=== PATIENT | female | born 1980 | race African-American/Black ===

== ENCOUNTER 2016-11-01 09:45 | Emergency (ER) | payer BC ==
[~2016-11-01] VITALS: Ht 175.3 cm; Wt 68.0 kg
[2016-11-01 10:06] VITALS: BP 114/74
[2016-11-01] MEDS ORDERED: SYNTHROID75 MCG ORAL (10:11)
[2016-11-01] MEDS ORDERED: OFLOXACIN10 ML OP (10:52)
--- NOTE | 2016-11-01 10:52 | Emergency Room Report ---
History of Present Illness General Chief Complaint: Eye Problems Source: Patient Present Illness HPI This patient states that she has a toddler that had pinkeye in addition to her who had pinkeye were treated. Patient states she has had congestion, cough and postnasal drip for the past week. She states that she noticed her eyes became red and irritated. She denies blurry vision or double vision. She states that she woke up this morning with some discharge caked on to her eyelids. She denies fever or chills. She denies headache or neck pain. She has a mild sore throat. She has no other complaints. Allergies: Uncoded Allergies: SHELLFISH (Allergy, Unknown, 11/01/16) Patient History Past Medical History: see triage record, other - Hypothyroid Social History: Denies: alcohol use, drug use, smoking Last Menstrual Period: 11/2015 Now: No Reviewed Nursing Documentation: PMH: Agreed, PSxH: Agreed Nursing Documentation-PMH Past Medical History: No History, Except For Review of Systems All Other Systems: negative except mentioned in HPI Physical Exam Vital Signs Date Time Temp Pulse Resp B/P Pulse Ox O2 Delivery O2 Flow Rate FiO2 11/01/16 10:06 97.9 79 16 114/74 99 Room Air Sp02 EP Interpretation: reviewed, normal General Appearance: no apparent distress, alert, GCS 15, non-toxic Head: normocephalic, atraumatic Eyes: bilateral eye PERRL, bilateral eye other - Mild conjunctival erythema R>L ENT: hearing grossly normal, normal pharynx, no angioedema, normal voice Neck: full range of motion, supple/symm/no masses Respiratory: chest non-tender, lungs clear, normal breath sounds, speaking full sentences Cardiovascular #1: regular rate, rhythm, no edema Gastrointestinal: normal bowel sounds, non tender, soft, non-distended, no guarding, no rebound Rectal: deferred Musculoskeletal: back normal, gait/station normal, normal range of motion, non- tender Neurologic: alert, oriented x3, responsive, motor strength/tone normal, sensory intact, speech normal Psychiatric: judgement/insight normal, memory normal, mood/affect normal, no suicidal/homicidal ideation Skin: normal color, no rash, warm/dry, well hydrated Lymphatic: no adenopathy Medical Decision Making Diagnostic Impression: Primary Impression: Conjunctivitis of both eyes Additional Impression: URI (upper respiratory infection) ER Course This patient has a clinical presentation with upper respiratory tract infection. The evaluation was very reassuring with a normal lung exam, no respiratory distress, normal pulse oximetry. I am not concerned for pneumonia in this patient. This is most likely viral and will not need antibiotic therapy. The patient also has a mild conjunctivitis. Likely this is viral. However, the patient is very concerned because both her children were treated with antibiotics so will give the patient Ilotycin. The patient was educated that she should attempt to not use it and only started if her symptoms persist or worsen. No emergency medical condition was identified. The patient is given return precautions and followup instructions. Last Vital Signs Date Time Temp Pulse Resp B/P Pulse Ox O2 Delivery O2 Flow Rate FiO2 11/01/16 10:06 97.9 79 16 114/74 99 Room Air Disposition: HOME, SELF-CARE Condition: Improved Scripts Ofloxacin (Ofloxacin) 5 Ml Drops 2 DROP OP Q6HR for 5 Days, ML Prov: MANSOOR BOATENG D.O. 11/01/16 Referrals: NON PHYSICIAN (PCP) Patient Instructions: Upper Respiratory Infection, Adult, [id number], Viral Conjunctivitis MANSOOR BOATENG D.O. Nov 01, 2016 10:52
[2016-11-01 11:00] VITALS: BP 116/71
[2016-11-01 11:02] VITALS: BP 116/71
== END 2016-11-01 11:03 | disposition home or self-care (01) ==
LOC: EMR 10:40
DX: H10.9 Unspecified conjunctivitis (principal); J06.9 Acute upper respiratory infection, unspecified; E03.9 Hypothyroidism, unspecified; Z91.013 Allergy to seafood
CPT/HCPCS: 99283